=== PATIENT | female | born 1995 | race Caucasian/White ===

== ENCOUNTER 2020-07-27 00:12 | Observation (INO) | payer BC, OTHER, SELFPAY ==
[2020-07-27 00:48] LABS: #Basophils 0.1 thou/uL (0.0-0.2); #Eosinphils 0.3 thou/uL (0.0-0.7); #Lymphocytes 3.1 thou/uL (1.20-3.40); #Monocytes 0.6 thou/uL (0.11-0.59); #Neutrophils 6.3 thou/uL (1.40-6.50); %Basophils 1.2 % (0.0-1.0); %Eosinophils 2.7 % (0.0-10.0); %Lymphocytes 29.5 % (21.0-51.0); %Monocytes 6.1 % (0.0-10.0); %Neutrophils 60.6 % (42.0-75.0); Hemoglobin 14.6 g/dL (12.0-16.0); Mean Corpuscular HGB CONC 32.9 g/dL (32.0-36.0); Mean Corpuscular Hemoglobin 31.9 pg (27.0-31.0); Mean Corpuscular Volume 96.8 fL (78.0-98.0); Platelet Count 373 thou/uL (130-400); RBC Distribution Width 11.7 % (11.5-14.5); Red Blood Cell (RBC) Count 4.58 mill/uL (4.20-5.40); White Blood Cell (WBC) Count 10.5 thou/uL (4.8-10.8)
[2020-07-27 00:54] LABS: BHCG - Serum Negative (NEGATIVE); Pregs Control Background? CLEAR/WHITE (CLR/WHITE); Pregs Control Bar Appear? YES (CONTROL BAR)
[2020-07-27 01:08] LABS: ALT (SGPT) 12 U/L (8-55); AST (SGOT) 14 U/L (5-34); Albumin 4.7 g/dL (3.5-5.0); Alkaline Phosphatase 75 U/L (40-110); Anion Gap 12 mmol/L (10-20); BUN (Urea Nitrogen) 9 mg/dL (7.0-18.7); Bilirubin, Total 0.5 mg/dL (0.2-1.2); Calc. Creatinine Clearance 0 mL/min (70-130); Calcium 9.8 mg/dL (7.8-10.44); Carbon Dioxide 25 mmol/L (22-29); Chloride 106 mmol/L (98-107); Globulin 3.2 g/dL (2.4-3.5); Glucose 87 mg/dL (70-105); Potassium 3.9 mmol/L (3.5-5.1); Protein, Total 7.9 g/dL (6.0-8.3); Sodium 139 mmol/L (136-145)
[2020-07-27 01:34] LABS: SARS-CoV-2 NAA Rapid Test DETECTED (NotDetected)
[2020-07-27 02:53] VITALS: BMI 22.2
[2020-07-27] MEDS ORDERED: Sodium Chloride 0.9% 1,000 ML IV SCH (03:00)
[2020-07-27] MEDS ORDERED: Ondansetron PF 4 MG/2 ML Vial IVP PRN (05:06)
[2020-07-27] MEDS ORDERED: PROPOFOL 200 MG/20 ML VIAL ONE (10:00)
[2020-07-27] MEDS ORDERED: Lidocaine 1% PF 5 ML VIAL ONE (10:00)
[2020-07-27] MEDS ORDERED: Ondansetron HCl/PF 4 MG/2 ML Vial IVP PRN (10:58)
[2020-07-27] MEDS ORDERED: Promethazine HCl 25 MG/ML VIAL SLOW IVP PRN (10:58)
[2020-07-27] MEDS ORDERED: Meperidine HCl/PF 25 MG/ML VIAL SLOW IVP PRN (10:58)
[2020-07-27] MEDS ORDERED: Promethazine HCl 25 MG/ML VIAL IM PRN (10:58)
[2020-07-27 11:52] VITALS: TEMP 98.4
[2020-07-27 14:27] VITALS: BP 110/71
== END 2020-07-27 14:20 | disposition home or self-care (01) ==
LOC: ERS 00:12 → SURG A 01:36
PROVIDERS: ADMIT Internal Medicine; ATTEND Internal Medicine
PROC: 0DC28ZZ Extirpation of Matter from Middle Esophagus, Via Natural or Artificial Opening Endoscopic (ICD-10-PCS; principal; 2020-07-27)
PROC: 0DC38ZZ Extirpation of Matter from Lower Esophagus, Via Natural or Artificial Opening Endoscopic (ICD-10-PCS; 2020-07-27)
DX: T18.198A Other foreign object in esophagus causing other injury, initial encounter (principal); K22.10 Ulcer of esophagus without bleeding; U07.1 COVID-19; K22.8 Other specified diseases of esophagus; Z87.891 Personal history of nicotine dependence; Z79.899 Other long term (current) drug therapy; Z88.0 Allergy status to penicillin
CPT/HCPCS: 71045; 80053; 84703; 85025; G0378; J2704; U0002; U0005